=== PATIENT | male | born 1940 | race Caucasian/White ===

== ENCOUNTER 2017-09-29 08:15 | Day surgery (SDC) | payer MEDICARE, BC ==
[2017-09-29] MEDS ORDERED: fentaNYL 100 MCG/2 ML SDV ONE ×2 (08:47→11:15)
[2017-09-29] MEDS ORDERED: Propofol 200 MG/20 ML SDV ONE ×2 (08:47→11:15)
[2017-09-29] MEDS ORDERED: Midazolam 1 MG/ML 2 ML SDV ONE ×2 (08:47→11:15)
[2017-09-29] MEDS ORDERED: Lactated Ringers 1,000 ML IV SCH (09:30)
[2017-09-29] MEDS ORDERED: Sodium Chloride 0.9% 10 ML Syringe FLUSH PRN (09:30)
--- NOTE | 2017-09-29 11:05 | PCM.HPR ---
H & P Addendum review - H & P Addendum Review Date of Original H & P: 09/27/17 Date Reviewed: 09/29/17 Time Reviewed: 11:05 Patient was Examined: No Changes
--- NOTE | 2017-09-29 11:48 | PCM.OPNOTE ---
- General Post-Op/Procedure Note Date of Surgery/Procedure: 09/29/17 Operative Procedure(s): Colonoscopy with polypectomy Findings: polyps / sig tics Pre Op Diagnosis: Change in bowel habits Post-Op Diagnosis: Same Anesthesia Technique: MAC Primary Surgeon: David Floyd Anesthesia Provider: Shanae Jaffe Complications: None Condition: Good
[2017-09-29 12:46] VITALS: BP 112/57
--- NOTE | 2017-09-29 12:50 | OR ---
Date of Procedure: 09/29/2017 PREOPERATIVE DIAGNOSIS: Change of bowel habits. POSTOPERATIVE DIAGNOSES: 1. Colon polyps. 2. Sigmoid diverticulosis. PROCEDURE: Colonoscopy. ANESTHESIA: IV sedation. DESCRIPTION OF PROCEDURE: The patient was brought to the procedure room, where he was placed on his left side and IV sedation administered. Digital rectal exam was performed which was normal. Colonoscope was inserted and advanced to the level of the cecum without difficulty. Cecal position was confirmed by identifying the appendiceal lumen and ileocecal valve. Prep was good and surfaces were well visualized. Upon withdrawing the scope, the ascending and transverse colon were normal. In the descending colon was a 12-mm pedunculated polyp, removed with a cautery snare and retrieved into the polyp trap. In the sigmoid colon at 40 cm, was another 10-mm pedunculated polyp removed with cautery snare and retrieved in the polyp trap. There were a few sigmoid diverticula present. Rectum was normal and retroflexion was normal. Air was removed and the scope withdrawn. The patient tolerated the procedure well and returned to recovery in stable condition. The patient will follow up with Chris Bob for review of pathology report. Polyps are obviously adenomatous, and recommend a repeat colonoscopy again in 3 years. HIRAM MORELAND MD /[id number]
== END 2017-09-29 12:43 | disposition home or self-care (01) ==
LOC: LL.SDS 08:15
PROVIDERS: ATTEND Surgery
DX: R19.4 Change in bowel habit (principal); D12.4 Benign neoplasm of descending colon; D12.5 Benign neoplasm of sigmoid colon; K57.30 Diverticulosis of large intestine without perforation or abscess without bleeding; J44.9 Chronic obstructive pulmonary disease, unspecified; F32.9 Major depressive disorder, single episode, unspecified; J30.9 Allergic rhinitis, unspecified; N40.1 Benign prostatic hyperplasia with lower urinary tract symptoms; N13.8 Other obstructive and reflux uropathy; Z79.51 Long term (current) use of inhaled steroids; Z79.52 Long term (current) use of systemic steroids; Z79.899 Other long term (current) drug therapy; Z88.2 Allergy status to sulfonamides; Z88.8 Allergy status to other drugs, medicaments and biological substances; Z98.890 Other specified postprocedural states; Z87.891 Personal history of nicotine dependence
CPT/HCPCS: 00812; J2250; J2704; J3010; J7120

== ENCOUNTER 2018-07-27 11:33 | Inpatient (IN) | payer MEDICARE, BC ==
[2018-07-27 11:36] LABS: CHLORIDE,CL 100 mmol/L (98-107); SODIUM,NA 140 mmol/L (136-145)
--- NOTE | 2018-07-27 11:50 | PCM.HP ---
H&P History of Present Illness - General Date of Service: 07/27/18 Admit Problem/Dx: COPD and pneumonia Source of Information: Patient History Limitations: Reports: Respiratory Distress - History of Present Illness Initial Comments - Free Text/Narative: patient is a 78-year-old male who seen with chief complaint of progressive respiratory distress patient has a long history of COPD and smoking he quit smoking 16 years ago were seen complications on long-acting smoking. Patient states that for the last 4 months he has not been feeling well a bout 6 weeks ago was seen and treated with Levaquin 750 by mouth for 9 days patient did not improve much and 10 days and was restarted on Levaquin has been on it for 19 days now patient IS RUNNING levels between a levels at room air between 80 and 84 with minimal exertion and has been wearing 3 L along 2 constantly to maintain saturations greater than 90%. Initial evaluation revealed chest x-ray to have a right mental lobe with long-term changes of COPD at this time we will go ahead and admit patient for aggressive pulmonary treatments. infiltrate Onset of Symptoms: Reports: Gradual Duration of Symptoms: Reports: Week(s):, Chronic, Getting Worse Location: Reports: Chest Quality: Reports: Ache Severity: Moderate Improves with: Reports: Medication, Rest Worsens with: Reports: Breathing, Movement Context: Reports: Other (pneumonia) Associated Symptoms: Reports: No Other Symptoms, cough w sputum, Shortness of Breath, Weakness - Related Data Allergies/Adverse Reactions: Allergies Allergy/AdvReac Type Severity Reaction Status Date / Time dexamethasone Allergy Nausea and Verified 07/27/18 11:50 Vomiting Sulfa (Sulfonamide AdvReac urinary Verified 07/27/18 11:50 Antibiotics) retention Home Medications: Home Meds Tiotropium [Spiriva HandiHaler] 1 ampule IH DAILY 06/14/14 [History] Finasteride [Proscar] 5 mg PO DAILY 04/09/16 [History] Fluticasone/Salmeterol [Advair 500-50] 1 puff INH BID 09/29/17 [History] Sertraline [Zoloft] 50 mg PO DAILY 09/29/17 [History] Tamsulosin [Flomax] 2 cap PO DAILY 09/29/17 [History] guaiFENesin [Mucinex] 600 mg PO BID 09/29/17 [History] Levofloxacin 1 tab PO DAILY 07/27/18 [History] Past Medical History HEENT History: Reports: Allergic Rhinitis, Cataract, Hard of Hearing, Impaired Vision, Other (See Below) Other HEENT History: Progressive lenses/glasses, bilateral hearing aides Cardiovascular History: Reports: Aneurysm, Arrhythmia, CAD, High Cholesterol, Other (See Below) Other Cardiovascular History: 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, inferior wall cardiac ischemia by Cardiolite stress test on 11/07/03, hyperlipidemia with secondary fatty liver by ultrasound Respiratory History: Reports: Bronchitis, Recurrent, COPD, Pneumonia, Recurrent , Pneumothorax, Pulmonary Fibrosis, Other (See Below) Other Respiratory History: Severe end-stage COPD with nocturnal O2 therapy and additional pulmonary fibrosis by chest x-ray, right sided spontaneous pneumothorax on 07/26/14, left sided pulmonary nodule Gastrointestinal History: Reports: None, Other (See Below) Other Gastrointestinal History: Fatty liver secondary to hyperlipidemia, multiple benign hepatic cysts Genitourinary History: Reports: BPH, Retention, Urinary, UTI, Recurrent, Other ( See Below) Other Genitourinary History: Left renal cyst Musculoskeletal History: Reports: Back Pain, Chronic, Neck Pain, Chronic, Osteoarthritis, Osteoporosis Neurological History: Reports: None Other Neuro History: Dunlap's Neuroma Psychiatric History: Reports: Anxiety, Depression Endocrine/Metabolic History: Reports: Osteoporosis Hematologic History: Reports: None Immunologic History: Reports: None Oncologic (Cancer) History: Reports: Basal Cell Carcinoma Dermatologic History: Reports: None - Infectious Disease History Infectious Disease History: Reports: Chicken Pox, Measles, Mumps - Past Surgical History GI Surgical History: Reports: Colonoscopy, Other (See Below) - Past Imaging History Past Imaging History: Reports: CAT Scan, HIDA Scan, PFT, Sleep Study, Stress Testing, Ultrasound Social & Family History - Caffeine Use Caffeine Use: Reports: Coffee Caffeine Use Comment: 6 cups of coffee per day - Living Situation & Occupation Living situation: Reports: , with Family Occupation: Employed H&P Review of Systems - Review of Systems: Review Of Systems: See Below HEENT: Reports: No Symptoms Pulmonary: Reports: Shortness of Breath, Wheezing (at night worse), Cough, Sputum Cardiovascular: Reports: No Symptoms Gastrointestinal: Reports: No Symptoms Genitourinary: Reports: No Symptoms Musculoskeletal: Reports: No Symptoms Skin: Reports: Pruritis, Rash Psychiatric: Reports: No Symptoms Neurological: Reports: Confusion (conveyed to hypoxia) Hematologic/Lymphatic: Reports: No Symptoms Immunologic: Reports: No Symptoms Exam - Exam Exam: See Below - Exam Quality Assessment: Supplemental Oxygen General: Alert, Oriented, Cooperative, Moderate Distress HEENT: PERRLA, Hearing Intact, Mucosa Moist & [place], Nares Patent, Normal Nasal Septum, Posterior Pharynx Clear, Conjunctiva Clear, EOMI, EACs Clear, TMs Clear Neck: Supple, Trachea Midline, 2 Lungs: Decreased Breath Sounds, Rales Cardiovascular: Regular Rate, Regular Rhythm GI/Abdominal Exam: Normal Bowel Sounds, Soft, Non-Tender, No Organomegaly, No Distention, No Abnormal Bruit, No Mass, Pelvis Stable (Male) Exam: No Hernia Rectal (Males) Exam: Deferred, Other (colonoscopy done 9 months ago negative for any polyps bleeding) Back Exam: Decreased Range of Motion Extremities: Normal Inspection, Normal Range of Motion, Non-Tender, No Pedal Edema, Normal Capillary Refill Skin: Warm, Dry, Intact Neurological: Cranial Nerves Intact, Reflexes Equal Bilateral Neuro Extensive - Mental Status: Alert, Oriented x3, Normal Mood/Affect, Normal Cognition Psychiatric: Alert, Normal Affect, Normal Mood - Patient Data Lab Results Last 24 hrs: Laboratory Results - last 24 hr 07/27/18 07/27/18 Range/Units 11:00 11:00 WBC 11.4 H (4.0-10.2) K/uL RBC 4.65 (4.33-5.41) M/uL Hgb 13.6 (13.1-16.8) g/dL Hct 41.2 (39.0-49.0) % MCV 88.6 (84.0-98.0) fL MCH 29.2 (28.2-33.3) pg MCHC 33.0 (31.7-36.0) g/dL RDW 14.1 (11.2-14.1) % Plt Count 214 (150-350) K/uL Neut % (Auto) 80.7 H (45.0-80.0) % Lymph % (Auto) 6.5 L (10.0-50.0) % [place] % (Auto) 12.0 (2.0-14.0) % Eos % (Auto) 0.6 (0.0-5.0) % Baso % (Auto) 0.2 (0.0-2.0) % Neut # (Auto) 9.19 H (1.40-7.00) K/uL Lymph # (Auto) 0.74 (0.50-3.50) K/uL [place] # (Auto) 1.36 H (0.00-1.00) K/uL Eos # (Auto) 0.07 (0.00-0.50) K/uL Baso # (Auto) 0.02 (0.00-0.20) K/uL Sodium 140 (136-145) mmol/L Potassium 4.1 (3.5-5.1) mmol/L Chloride 100 (98-107) mmol/L Carbon Dioxide 32.4 H (21.0-32.0) mmol/L BUN 14 (7-18) mg/dL Creatinine 0.66 (0.51-1.17) mg/dL Est Cr Clr Drug Dosing TNP Estimated GFR (MDRD) > 60 mL/min Glucose 93 (74-106) mg/dL Calcium 8.9 (8.5-10.1) mg/dL Total Bilirubin 0.7 (0.2-1.0) mg/dL AST 18 (15-37) U/L ALT 20 (12-78) U/L Alkaline Phosphatase 66 (46-116) IU/L NT-Pro-B Natriuret Pep 286 H (0-125) pg/mL Total Protein 7.0 (6.4-8.2) g/dL Albumin 3.0 L (3.4-5.0) g/dL Result Diagrams: 07/27/18 11:00 07/27/18 11:00 - Problem List (1) COLD, Chronic obstructive lung disease SNOMED Code(s): 83841393 ICD Code: J44.9 - CHRONIC OBSTRUCTIVE PULMONARY DISEASE, UNSPECIFIED Status : Acute Priority: High Current Visit: No Onset Date: 07/26/14 Problem Details: patient's FEV1 has declined mildly in the Last couple years at this time his expiratory phase is prolonged we will go ahead and admit him for treatment (2) Pneumonia SNOMED Code(s): 596921916 ICD Code: J18.9 - PNEUMONIA, UNSPECIFIED ORGANISM Status: Acute Priority : High Current Visit: No Problem Details: right middle lobe patient's be admitted for IV antibiotics and aggressive pulmonary treatments. 11-29-14. Patient's breathing has improved. Patient will be DC'd today Problem List Initiated/Reviewed/Updated: Yes Orders Last 24hrs: Active Orders 24 hr Category Date Time Status Chest 2V [CR] Routine Exams 07/27/18 Taken Assessment/Plan Comment:: Mark to admit him and treat him with medications hopefully release him in the next couple days
[2018-07-27] MEDS ORDERED: Azithromycin 500 MG in Sodium Chloride 0.9% 250 ML IV SCH (12:45)
[2018-07-27] MEDS ORDERED: Albuterol/Ipratropium 3.0-0.5 MG/3 ML Neb Soln NEB PRN (13:00)
[2018-07-27 13:03] LABS: BASE EXCESS ARTERIAL 5 mmol/L (-2-3); BICARBONATE,ARTERIAL 29.1 mmol/L (22-26); O2 DELIVERY DEVICE NASAL CANNULA; O2 SATURATION ARTERIAL 98 % (95-98); PCO2 ARTERIAL 44 mmHG (35-45); PO2 ARTERIAL 96 mmHG (80-105)
[2018-07-27] MEDS: methylPREDNISolone Sodium Succinate 125 MG/2 ML SDV IVPUSH SCH ×2 (13:50→19:55)
[2018-07-27] MEDS: Sodium Chloride 0.9% 10 ML Syringe FLUSH PRN ×4 (13:51→19:55)
[2018-07-27] MEDS: Azithromycin 500 MG in Sodium Chloride 0.9% 250 ML IV SCH (13:51)
[2018-07-27] MEDS: Piperacillin/Tazobactam 3.375 GM in Sodium Chloride 0.9% 100 ML IV SCH ×2 (14:54→19:54)
[2018-07-27] MEDS: Levofloxacin/Dextrose 5%-Water 750 MG in Premix Bag 1 BAG IV SCH (15:30)
[2018-07-27] MEDS: Albuterol/Ipratropium 3.0-0.5 MG/3 ML Neb Soln NEB SCH ×2 (15:33→19:56)
[2018-07-27] MEDS: Formoterol/Mometasone 200-5 MCG 8.8 GM Inhaler IH SCH (17:46)
[2018-07-27] MEDS: guaiFENesin 600 MG Tab.ER PO SCH (17:47)
[2018-07-27] MEDS: Tamsulosin 0.4 MG Cap.ER PO SCH (17:47)
[2018-07-28] MEDS: methylPREDNISolone Sodium Succinate 125 MG/2 ML SDV IVPUSH SCH ×3 (02:01→12:07)
[2018-07-28] MEDS: Sodium Chloride 0.9% 10 ML Syringe FLUSH PRN ×7 (02:01→19:23)
[2018-07-28] MEDS: Piperacillin/Tazobactam 3.375 GM in Sodium Chloride 0.9% 100 ML IV SCH ×4 (02:01→19:23)
[2018-07-28 07:38] LABS: CHLORIDE,CL 99 mmol/L (98-107); SODIUM,NA 138 mmol/L (136-145)
[2018-07-28] MEDS: Sertraline 50 MG Tab PO SCH (07:49)
[2018-07-28] MEDS: Finasteride 5 MG Tab PO SCH (07:50)
[2018-07-28] MEDS: guaiFENesin 600 MG Tab.ER PO SCH ×2 (07:50→17:23)
[2018-07-28] MEDS: Tamsulosin 0.4 MG Cap.ER PO SCH ×2 (07:50→17:23)
[2018-07-28] MEDS: Albuterol/Ipratropium 3.0-0.5 MG/3 ML Neb Soln NEB SCH ×4 (07:50→19:23)
[2018-07-28] MEDS: Formoterol/Mometasone 200-5 MCG 8.8 GM Inhaler IH SCH ×2 (07:51→17:23)
[2018-07-28] MEDS: Enoxaparin 30 MG/0.3 ML Syringe SUBCUT SCH (07:51)
[2018-07-28] MEDS: Tiotropium Inhaler 18 MCG Inhalation Powder Cap Kit of 5 INH SCH (07:53)
[2018-07-28] MEDS ORDERED: Tamsulosin 0.4 MG Cap.ER PO SCH (08:00)
[2018-07-28] MEDS ORDERED: Sertraline 50 MG Tab PO SCH (08:00)
[2018-07-28] MEDS: Azithromycin 500 MG in Sodium Chloride 0.9% 250 ML IV SCH (12:07)
[2018-07-28] MEDS: Levofloxacin/Dextrose 5%-Water 750 MG in Premix Bag 1 BAG IV SCH (15:27)
[2018-07-28] MEDS ORDERED: methylPREDNISolone Sod Succ 60 MG in Sodium Chloride 0.9% 100 ML IV ONE (17:18)
--- NOTE | 2018-07-28 17:26 | PCM.PN ---
- General Info Date of Service: 07/28/18 Subjective Update: Patient seen doing better today less shortness of breath breathing easier at this time we will leave his prednisone down continue him on antibiotics repeat chest x-ray and labs in the morning - Review of Systems General: Reports: No Symptoms HEENT: Reports: No Symptoms Pulmonary: Reports: Shortness of Breath Cardiovascular: Reports: No Symptoms Gastrointestinal: Reports: No Symptoms Genitourinary: Reports: No Symptoms Musculoskeletal: Reports: No Symptoms Skin: Reports: No Symptoms Neurological: Reports: No Symptoms Psychiatric: Reports: No Symptoms - Patient Data Vitals - Most Recent: Last Vital Signs Temp 97.9 F 07/28/18 16:00 Pulse 83 07/28/18 16:00 Resp 22 H 07/28/18 16:00 BP 120/63 07/28/18 16:00 Pulse Ox 95 07/28/18 16:00 Weight - Most Recent: 126 lb 12.817 oz I&O - Last 24 Hours: Intake & Output 07/28/18 07/28/18 07/28/18 06:59 14:59 22:59 Intake Total 400 720 Output Total 100 150 Balance 300 570 Lab Results Last 24 Hours: Laboratory Results - last 24 hr 07/28/18 07/28/18 Range/Units 07:05 07:05 WBC 6.1 (4.0-10.2) K/uL RBC 4.21 L (4.33-5.41) M/uL Hgb 12.2 L (13.1-16.8) g/dL Hct 36.7 L (39.0-49.0) % MCV 87.2 (84.0-98.0) fL MCH 29.0 (28.2-33.3) pg MCHC 33.2 (31.7-36.0) g/dL RDW 13.7 (11.2-14.1) % Plt Count 219 (150-350) K/uL Neut % (Auto) 93.2 H (45.0-80.0) % Lymph % (Auto) 5.1 L (10.0-50.0) % [place] % (Auto) 1.5 L (2.0-14.0) % Eos % (Auto) 0.0 (0.0-5.0) % Baso % (Auto) 0.2 (0.0-2.0) % Neut # (Auto) 5.67 (1.40-7.00) K/uL Lymph # (Auto) 0.31 L (0.50-3.50) K/uL [place] # (Auto) 0.09 (0.00-1.00) K/uL Eos # (Auto) 0.00 (0.00-0.50) K/uL Baso # (Auto) 0.01 (0.00-0.20) K/uL Sodium 138 (136-145) mmol/L Potassium 4.2 (3.5-5.1) mmol/L Chloride 99 (98-107) mmol/L Carbon Dioxide 28.2 (21.0-32.0) mmol/L BUN 14 (7-18) mg/dL Creatinine 0.62 (0.51-1.17) mg/dL Est Cr Clr Drug Dosing 82.46 mL/min Estimated GFR (MDRD) > 60 mL/min Glucose 138 H (74-106) mg/dL Calcium 8.6 (8.5-10.1) mg/dL Total Bilirubin 0.5 (0.2-1.0) mg/dL AST 14 L (15-37) U/L ALT 21 (12-78) U/L Alkaline Phosphatase 58 (46-116) IU/L Total Protein 6.4 (6.4-8.2) g/dL Albumin 2.7 L (3.4-5.0) g/dL [place] Results Last 24 Hours: Microbiology 07/27/18 13:10 Aerobic Blood Culture - Preliminary Blood - Venous - Lab Draw NO GROWTH AFTER 1 DAY Anaerobic Blood Culture - Preliminary NO GROWTH AFTER 1 DAY 07/27/18 12:55 Aerobic Blood Culture - Preliminary Blood - Venous NO GROWTH AFTER 1 DAY Anaerobic Blood Culture - Preliminary NO GROWTH AFTER 1 DAY Med Orders - Current: Current Medications Albuterol/Ipratropium (Duoneb 3.0-0.5 Mg/3 Ml) 3 ml NEB Q4H PRN PRN Reason: Dyspnea Albuterol/Ipratropium (Duoneb 3.0-0.5 Mg/3 Ml) 3 ml NEB QID [facility] Last Admin: 07/28/18 15:27 Dose: 3 ml Enoxaparin Sodium (Lovenox) 30 mg SUBCUT DAILY [facility] Last Admin: 07/28/18 07:51 Dose: 30 mg Finasteride (Proscar) 5 mg PO DAILY [facility] Last Admin: 07/28/18 07:50 Dose: 5 mg Guaifenesin (Mucinex) 600 mg PO BID [facility] Last Admin: 07/28/18 07:50 Dose: 600 mg Levofloxacin/Dextrose 750 mg/ (Premix) 150 mls @ 100 mls/hr IV Q24H [facility] Last Admin: 07/28/18 15:27 Dose: 100 mls/hr Piperacillin Sod/Tazobactam (Sod 3.375 gm/ Sodium Chloride) 100 mls @ 200 mls/ hr IV Q6H [facility] Last Admin: 07/28/18 13:19 Dose: 200 mls/hr Azithromycin 500 mg/ Sodium (Chloride) 250 mls @ 250 mls/hr IV Q24H [facility] Last Admin: 07/28/18 12:07 Dose: 250 mls/hr Methylprednisolone Sodium Succinate 60 mg/ Sodium Chloride 100.48 mls @ 100 mls /hr IV QID ONE Stop: 07/28/18 18:18 Mometasone Furoate/Formoterol Fumar (Dulera 200-5 Mcg) 2 puff IH BID [facility] Last Admin: 07/28/18 07:51 Dose: 2 puff Sertraline HCl (Zoloft) 75 mg PO DAILY [facility] Last Admin: 07/28/18 07:49 Dose: 75 mg Sodium Chloride (Saline Flush) 10 ml FLUSH ASDIRECTED PRN PRN Reason: Keep Vein Open Last Admin: 07/28/18 15:30 Dose: 10 ml Tamsulosin HCl (Flomax) 0.4 mg PO BID [facility] Last Admin: 07/28/18 07:50 Dose: 0.4 mg Tiotropium [place] (Spiriva Handihaler) 18 mcg INH DAILY [facility] Last Admin: 07/28/18 07:53 Dose: 18 mcg Discontinued Medications Azithromycin 500 mg/ Sodium (Chloride) 250 mls @ 250 mls/hr IV Q24H [facility] Methylprednisolone Sodium Succinate (Solu-Medrol) 125 mg IVPUSH Q6H [facility] Last Admin: 07/28/18 12:07 Dose: 125 mg Sertraline HCl (Zoloft) 50 mg PO DAILY [facility] Tamsulosin HCl (Flomax) 0.8 mg PO DAILY [facility] - Exam Quality Assessment: Supplemental Oxygen General: Alert, Oriented, Cooperative, Moderate Distress HEENT: Pupils Equal, Pupils Reactive, EOMI, Mucous Membr. Moist/[place] Neck: Supple Lungs: Decreased Breath Sounds, Wheezing (Improving) Cardiovascular: Regular Rate, Regular Rhythm GI/Abdominal Exam: Normal Bowel Sounds, Soft, Non-Tender, No Organomegaly, No Distention, No Abnormal Bruit, No Mass, Pelvis Stable (Male) Exam: Deferred Back Exam: Normal Inspection, Full Range of Motion Extremities: Normal Inspection, Normal Range of Motion, Non-Tender, No Pedal Edema, Normal Capillary Refill - Problem List & Annotations (1) COLD, Chronic obstructive lung disease SNOMED Code(s): 39196822 Code(s): J44.9 - CHRONIC OBSTRUCTIVE PULMONARY DISEASE, UNSPECIFIED Status : Acute Priority: High Current Visit: Yes Onset Date: 07/26/14 Annotation/Comment:: Patient feeling better less short of breath will continue medical (2) Pneumonia SNOMED Code(s): 574345346 Code(s): J18.9 - PNEUMONIA, UNSPECIFIED ORGANISM Status: Acute Priority: High Current Visit: Yes Annotation/Comment:: Patient breathing continues improving he feels much stronger today and breathing easier - Problem List Review Problem List Initiated/Reviewed/Updated: Yes - My Orders Last 24 Hours: My Active Orders 07/27/18 18:00 Mometasone/Formoterol [Dulera 200-5 MCG] 2 puff IH BID Tamsulosin [Flomax] 0.4 mg PO BID guaiFENesin [Mucinex] 600 mg PO BID 07/27/18 Dinner Heart Healthy Diet [DIET] 07/28/18 08:00 Enoxaparin [Lovenox] 30 mg SUBCUT DAILY Finasteride [Proscar] 5 mg PO DAILY Sertraline [Zoloft] 75 mg PO DAILY Tiotropium [Spiriva HandiHaler] 18 mcg INH DAILY 07/28/18 10:09 Consult to Physical Therapy [PT Evaluation and Treatment] [CONS] Routine 07/28/18 17:17 Chest 2V [CR] Stat 07/28/18 17:18 methylPREDNISolone Sod Succ [Solu-MEDROL] 60 mg Sodium Chloride 0.9% [Normal Saline] 100 ml IV QID 07/28/18 17:30 CBC WITH AUTO DIFF [HEME] AM 07/29/18 05:11 CBC WITH AUTO DIFF [HEME] Q24H 07/30/18 05:11 CBC WITH AUTO DIFF [HEME] Q24H 07/31/18 05:11 CBC WITH AUTO DIFF [HEME] Q24H - Plan Plan:: Mark to admit him and treat him with medications hopefully release him in the next couple days
[2018-07-28] MEDS: methylPREDNISolone Sodium Succinate 40 MG/1 ML SDV IVPUSH SCH (18:11)
[2018-07-29] MEDS: Sodium Chloride 0.9% 10 ML Syringe FLUSH PRN ×6 (01:46→19:43)
[2018-07-29] MEDS: Piperacillin/Tazobactam 3.375 GM in Sodium Chloride 0.9% 100 ML IV SCH ×4 (01:46→19:43)
[2018-07-29] MEDS: methylPREDNISolone Sodium Succinate 40 MG/1 ML SDV IVPUSH SCH ×4 (01:46→17:39)
[2018-07-29] MEDS: Sertraline 50 MG Tab PO SCH (08:40)
[2018-07-29] MEDS: Formoterol/Mometasone 200-5 MCG 8.8 GM Inhaler IH SCH ×2 (08:40→17:46)
[2018-07-29] MEDS: Finasteride 5 MG Tab PO SCH (08:41)
[2018-07-29] MEDS: guaiFENesin 600 MG Tab.ER PO SCH ×2 (08:41→17:39)
[2018-07-29] MEDS: Albuterol/Ipratropium 3.0-0.5 MG/3 ML Neb Soln NEB SCH ×4 (08:41→19:43)
[2018-07-29] MEDS: Tamsulosin 0.4 MG Cap.ER PO SCH ×2 (08:41→17:39)
[2018-07-29] MEDS: Tiotropium Inhaler 18 MCG Inhalation Powder Cap Kit of 5 INH SCH (08:42)
[2018-07-29] MEDS: Enoxaparin 30 MG/0.3 ML Syringe SUBCUT SCH (08:43)
[2018-07-29] MEDS: Azithromycin 500 MG in Sodium Chloride 0.9% 250 ML IV SCH (12:29)
[2018-07-29] MEDS: Levofloxacin/Dextrose 5%-Water 750 MG in Premix Bag 1 BAG IV SCH (15:37)
[2018-07-29] MEDS: Lactobacillus Rhamnosus GG (Probiotic) Cap PO SCH (17:39)
--- NOTE | 2018-07-29 21:44 | PCM.PN ---
- General Info Date of Service: 07/29/18 Admission Dx/Problem (Free Text): COPD and pneumonia Subjective Update: Patient doing better less shortness of breath was able to ambulate 100 m but still very anxious Functional Status: Reports: Tolerating Diet, Ambulating - Review of Systems General: Reports: Weakness HEENT: Reports: Glasses Pulmonary: Reports: Shortness of Breath Cardiovascular: Reports: No Symptoms Gastrointestinal: Reports: No Symptoms Genitourinary: Reports: No Symptoms Musculoskeletal: Reports: No Symptoms Skin: Reports: No Symptoms Neurological: Reports: No Symptoms Psychiatric: Reports: Anxiety, Agitation (Secondary to shortness of breath) - Patient Data Vitals - Most Recent: Last Vital Signs Temp 97.3 F 07/29/18 16:04 Pulse 86 07/29/18 16:04 Resp 18 07/29/18 16:04 BP 130/63 07/29/18 16:04 Pulse Ox 96 07/29/18 16:04 Weight - Most Recent: 126 lb 12.817 oz I&O - Last 24 Hours: Intake & Output 07/29/18 07/29/18 07/29/18 06:59 14:59 22:59 Intake Total 113 542 3197 Output Total 300 200 Balance -349 401 2425 Imaging Impressions - Last 24 Hours: Not much in the last 24 hours Lab Results Last 24 Hours: Laboratory Results - last 24 hr 07/29/18 Range/Units 07:12 WBC 14.7 H (4.0-10.2) K/uL RBC 4.46 (4.33-5.41) M/uL Hgb 12.9 L (13.1-16.8) g/dL Hct 39.0 (39.0-49.0) % MCV 87.4 (84.0-98.0) fL MCH 28.9 (28.2-33.3) pg MCHC 33.1 (31.7-36.0) g/dL RDW 14.0 (11.2-14.1) % Plt Count 269 (150-350) K/uL Neut % (Auto) 93.4 H (45.0-80.0) % Lymph % (Auto) 2.7 L (10.0-50.0) % [place] % (Auto) 3.8 (2.0-14.0) % Eos % (Auto) 0.0 (0.0-5.0) % Baso % (Auto) 0.1 (0.0-2.0) % Neut # (Auto) 13.70 H (1.40-7.00) K/uL Lymph # (Auto) 0.40 L (0.50-3.50) K/uL [place] # (Auto) 0.56 (0.00-1.00) K/uL Eos # (Auto) 0.00 (0.00-0.50) K/uL Baso # (Auto) 0.01 (0.00-0.20) K/uL [place]io Results Last 24 Hours: Microbiology 07/27/18 13:10 Aerobic Blood Culture - Preliminary Blood - Venous - Lab Draw NO GROWTH AFTER 2 DAYS Anaerobic Blood Culture - Preliminary NO GROWTH AFTER 2 DAYS 07/27/18 12:55 Aerobic Blood Culture - Preliminary Blood - Venous NO GROWTH AFTER 2 DAYS Anaerobic Blood Culture - Preliminary NO GROWTH AFTER 2 DAYS Med Orders - Current: Current Medications Albuterol/Ipratropium (Duoneb 3.0-0.5 Mg/3 Ml) 3 ml NEB Q4H PRN PRN Reason: Dyspnea Albuterol/Ipratropium (Duoneb 3.0-0.5 Mg/3 Ml) 3 ml NEB QID [facility] Last Admin: 07/29/18 19:43 Dose: 3 ml Enoxaparin Sodium (Lovenox) 30 mg SUBCUT DAILY [facility] Last Admin: 07/29/18 08:43 Dose: 30 mg Finasteride (Proscar) 5 mg PO DAILY [facility] Last Admin: 07/29/18 08:41 Dose: 5 mg Guaifenesin (Mucinex) 600 mg PO BID [facility] Last Admin: 07/29/18 17:39 Dose: 600 mg Levofloxacin/Dextrose 750 mg/ (Premix) 150 mls @ 100 mls/hr IV Q24H [facility] Last Admin: 07/29/18 15:37 Dose: 100 mls/hr Piperacillin Sod/Tazobactam (Sod 3.375 gm/ Sodium Chloride) 100 mls @ 200 mls/ hr IV Q6H [facility] Last Admin: 07/29/18 19:43 Dose: 200 mls/hr Azithromycin 500 mg/ Sodium (Chloride) 250 mls @ 250 mls/hr IV Q24H [facility] Last Admin: 07/29/18 12:29 Dose: 250 mls/hr Lactobacillus Rhamnosus (Culturelle) 1 cap PO BID [facility] Last Admin: 07/29/18 17:39 Dose: 1 cap Methylprednisolone Sodium Succinate (Solu-Medrol) 60 mg IVPUSH Q6H [facility] Last Admin: 07/29/18 17:39 Dose: 60 mg Mometasone Furoate/Formoterol Fumar (Dulera 200-5 Mcg) 2 puff IH BID [facility] Last Admin: 07/29/18 17:46 Dose: 2 puff Sertraline HCl (Zoloft) 75 mg PO DAILY [facility] Last Admin: 07/29/18 08:40 Dose: 75 mg Sodium Chloride (Saline Flush) 10 ml FLUSH ASDIRECTED PRN PRN Reason: Keep Vein Open Last Admin: 07/29/18 19:43 Dose: 10 ml Tamsulosin HCl (Flomax) 0.4 mg PO BID [facility] Last Admin: 07/29/18 17:39 Dose: 0.4 mg Tiotropium [place] (Spiriva Handihaler) 18 mcg INH DAILY [facility] Last Admin: 07/29/18 08:42 Dose: 1 cap Discontinued Medications Azithromycin 500 mg/ Sodium (Chloride) 250 mls @ 250 mls/hr IV Q24H [facility] Methylprednisolone Sodium Succinate 60 mg/ Sodium Chloride 100.48 mls @ 100 mls /hr IV QID ONE Stop: 07/28/18 18:18 Last Admin: 07/28/18 18:14 Dose: Not Given Methylprednisolone Sodium Succinate (Solu-Medrol) 125 mg IVPUSH Q6H [facility] Last Admin: 07/28/18 12:07 Dose: 125 mg Sertraline HCl (Zoloft) 50 mg PO DAILY [facility] Tamsulosin HCl (Flomax) 0.8 mg PO DAILY [facility] - Exam Quality Assessment: Supplemental Oxygen, DVT Prophylaxis General: Alert, Oriented, Cooperative HEENT: Pupils Equal, Pupils Reactive, EOMI, Mucous Membr. Moist/[employer] Neck: Supple Cardiovascular: Regular Rate, Regular Rhythm GI/Abdominal Exam: Normal Bowel Sounds, Soft, Non-Tender, No Organomegaly, No Distention, No Abnormal Bruit, No Mass, Pelvis Stable (Male) Exam: Deferred Back Exam: Normal Inspection, Full Range of Motion Extremities: Normal Inspection, Normal Range of Motion, Non-Tender, No Pedal Edema, Normal Capillary Refill Skin: Warm, Dry, Intact Wound/Incisions: Healing Well Neurological: No New Focal Deficit Psy/Mental Status: Anxious, Agitated - Problem List & Annotations (1) COLD, Chronic obstructive lung disease SNOMED Code(s): 36761075 Code(s): J44.9 - CHRONIC OBSTRUCTIVE PULMONARY DISEASE, UNSPECIFIED Status : Acute Priority: High Current Visit: Yes Onset Date: 07/26/14 Annotation/Comment:: Patient feeling better breathing easier still short of breath when ambulating did take a shower was anxious secondary to hypoxia. Needs oxygen all the time (2) Pneumonia SNOMED Code(s): 348300091 Code(s): J18.9 - PNEUMONIA, UNSPECIFIED ORGANISM Status: Acute Priority: High Current Visit: Yes Annotation/Comment:: We decreased his prednisone which helped him with anxiety and with shakiness I think will start him on BuSpar - Problem List Review Problem List Initiated/Reviewed/Updated: Yes - My Orders Last 24 Hours: My Active Orders 07/28/18 21:24 Vital Signs [RC] BID 07/29/18 05:11 Chest 2V [CR] AM 07/29/18 18:00 Lactobacillus Rhamnosus GG [Culturelle] 1 cap PO BID 07/30/18 05:11 CBC WITH AUTO DIFF [HEME] Q24H 07/31/18 05:11 CBC WITH AUTO DIFF [HEME] Q24H - Plan Plan:: Taytus to admit him and treat him with medications hopefully release him in the next couple days
[2018-07-30] MEDS: Piperacillin/Tazobactam 3.375 GM in Sodium Chloride 0.9% 100 ML IV SCH ×4 (03:06→21:16)
[2018-07-30] MEDS: Sodium Chloride 0.9% 10 ML Syringe FLUSH PRN ×3 (03:07→16:06)
[2018-07-30] MEDS: methylPREDNISolone Sodium Succinate 40 MG/1 ML SDV IVPUSH SCH ×2 (03:07→07:50)
[2018-07-30 07:38] LABS: CHLORIDE,CL 102 mmol/L (98-107); SODIUM,NA 139 mmol/L (136-145)
[2018-07-30] MEDS: Lactobacillus Rhamnosus GG (Probiotic) Cap PO SCH ×2 (07:53→17:13)
[2018-07-30] MEDS: Formoterol/Mometasone 200-5 MCG 8.8 GM Inhaler IH SCH ×2 (07:54→17:13)
[2018-07-30] MEDS: Tiotropium Inhaler 18 MCG Inhalation Powder Cap Kit of 5 INH SCH (07:54)
[2018-07-30] MEDS: Finasteride 5 MG Tab PO SCH (07:55)
[2018-07-30] MEDS: guaiFENesin 600 MG Tab.ER PO SCH ×2 (07:55→17:13)
[2018-07-30] MEDS: Albuterol/Ipratropium 3.0-0.5 MG/3 ML Neb Soln NEB SCH ×4 (07:55→21:15)
[2018-07-30] MEDS: Sertraline 50 MG Tab PO SCH (07:56)
[2018-07-30] MEDS: Tamsulosin 0.4 MG Cap.ER PO SCH ×2 (07:56→17:13)
[2018-07-30] MEDS: Enoxaparin 30 MG/0.3 ML Syringe SUBCUT SCH (07:56)
[2018-07-30] MEDS: busPIRone 15 MG Tab PO SCH ×2 (11:27→17:13)
[2018-07-30] MEDS ORDERED: Loperamide 2 MG Tab PO PRN (11:34)
[2018-07-30] MEDS: Azithromycin 500 MG in Sodium Chloride 0.9% 250 ML IV SCH (14:02)
[2018-07-30] MEDS: Levofloxacin/Dextrose 5%-Water 750 MG in Premix Bag 1 BAG IV SCH (16:06)
--- NOTE | 2018-07-31 01:05 | PCM.PN ---
- General Info Date of Service: 07/30/18 Admission Dx/Problem (Free Text): COPD and pneumonia Subjective Update: Patient doing better less shortness of breath was able to ambulate 100 m but still very anxious - Review of Systems General: Reports: No Symptoms HEENT: Reports: No Symptoms Pulmonary: Reports: Shortness of Breath Cardiovascular: Reports: No Symptoms Gastrointestinal: Reports: No Symptoms Genitourinary: Reports: No Symptoms Musculoskeletal: Reports: No Symptoms Skin: Reports: No Symptoms Neurological: Reports: No Symptoms Psychiatric: Reports: Anxiety - Patient Data Vitals - Most Recent: Last Vital Signs Temp 98.0 F 07/30/18 17:00 Pulse 72 07/30/18 17:00 Resp 16 07/30/18 17:00 BP 138/82 07/30/18 17:00 Pulse Ox 97 07/30/18 17:00 Weight - Most Recent: 126 lb 12.817 oz I&O - Last 24 Hours: Intake & Output 07/30/18 07/30/18 07/31/18 14:59 22:59 06:59 Intake Total 1090 640 Output Total 75 200 Balance 1015 440 Imaging Impressions - Last 24 Hours: Chest x-ray stable Lab Results Last 24 Hours: Laboratory Results - last 24 hr 07/30/18 07/30/18 Range/Units 07:17 07:17 WBC 12.6 H (4.0-10.2) K/uL RBC 4.61 (4.33-5.41) M/uL Hgb 13.4 (13.1-16.8) g/dL Hct 40.7 (39.0-49.0) % MCV 88.3 (84.0-98.0) fL MCH 29.1 (28.2-33.3) pg MCHC 32.9 (31.7-36.0) g/dL RDW 14.1 (11.2-14.1) % Plt Count 244 (150-350) K/uL Neut % (Auto) 93.7 H (45.0-80.0) % Lymph % (Auto) 2.6 L (10.0-50.0) % [place] % (Auto) 3.6 (2.0-14.0) % Eos % (Auto) 0.0 (0.0-5.0) % Baso % (Auto) 0.1 (0.0-2.0) % Neut # (Auto) 11.84 H (1.40-7.00) K/uL Lymph # (Auto) 0.33 L (0.50-3.50) K/uL [place] # (Auto) 0.45 (0.00-1.00) K/uL Eos # (Auto) 0.00 (0.00-0.50) K/uL Baso # (Auto) 0.01 (0.00-0.20) K/uL Sodium 139 (136-145) mmol/L Potassium 4.3 (3.5-5.1) mmol/L Chloride 102 (98-107) mmol/L Carbon Dioxide 30.6 (21.0-32.0) mmol/L BUN 20 H (7-18) mg/dL Creatinine 0.70 (0.51-1.17) mg/dL Est Cr Clr Drug Dosing 73.04 mL/min Estimated GFR (MDRD) > 60 mL/min Glucose 113 H (74-106) mg/dL Calcium 8.7 (8.5-10.1) mg/dL Total Bilirubin 0.3 (0.2-1.0) mg/dL AST 22 (15-37) U/L ALT 39 (12-78) U/L Alkaline Phosphatase 53 (46-116) IU/L Total Protein 6.2 L (6.4-8.2) g/dL Albumin 2.8 L (3.4-5.0) g/dL Helio Results Last 24 Hours: Microbiology 07/27/18 13:10 Aerobic Blood Culture - Preliminary Blood - Venous - Lab Draw NO GROWTH AFTER 3 DAYS Anaerobic Blood Culture - Preliminary NO GROWTH AFTER 3 DAYS 07/27/18 12:55 Aerobic Blood Culture - Preliminary Blood - Venous NO GROWTH AFTER 3 DAYS Anaerobic Blood Culture - Preliminary NO GROWTH AFTER 3 DAYS Med Orders - Current: Current Medications Albuterol/Ipratropium (Duoneb 3.0-0.5 Mg/3 Ml) 3 ml NEB Q4H PRN PRN Reason: Dyspnea Albuterol/Ipratropium (Duoneb 3.0-0.5 Mg/3 Ml) 3 ml NEB QID [facility] Last Admin: 07/30/18 21:15 Dose: 3 ml Buspirone HCl (Buspar) 15 mg PO BID [facility] Last Admin: 07/30/18 17:13 Dose: 15 mg Enoxaparin Sodium (Lovenox) 30 mg SUBCUT DAILY [facility] Last Admin: 07/30/18 07:56 Dose: 30 mg Finasteride (Proscar) 5 mg PO DAILY [facility] Last Admin: 07/30/18 07:55 Dose: 5 mg Guaifenesin (Mucinex) 600 mg PO BID [facility] Last Admin: 07/30/18 17:13 Dose: 600 mg Levofloxacin/Dextrose 750 mg/ (Premix) 150 mls @ 100 mls/hr IV Q24H [facility] Last Admin: 07/30/18 16:06 Dose: 100 mls/hr Piperacillin Sod/Tazobactam (Sod 3.375 gm/ Sodium Chloride) 100 mls @ 200 mls/ hr IV Q6H [facility] Last Admin: 07/30/18 21:16 Dose: 200 mls/hr Azithromycin 500 mg/ Sodium (Chloride) 250 mls @ 250 mls/hr IV Q24H [facility] Last Admin: 07/30/18 14:02 Dose: 250 mls/hr Lactobacillus Rhamnosus (Culturelle) 1 cap PO BID [facility] Last Admin: 07/30/18 17:13 Dose: 1 cap Loperamide HCl (Imodium Ad) 2 mg PO Q6H PRN PRN Reason: Medications Mometasone Furoate/Formoterol Fumar (Dulera 200-5 Mcg) 2 puff IH BID [facility] Last Admin: 07/30/18 17:13 Dose: 2 puff Sertraline HCl (Zoloft) 75 mg PO DAILY [facility] Last Admin: 07/30/18 07:56 Dose: 75 mg Sodium Chloride (Saline Flush) 10 ml FLUSH ASDIRECTED PRN PRN Reason: Keep Vein Open Last Admin: 07/30/18 16:06 Dose: 10 ml Tamsulosin HCl (Flomax) 0.4 mg PO BID [facility] Last Admin: 07/30/18 17:13 Dose: 0.4 mg Tiotropium [place] (Spiriva Handihaler) 18 mcg INH DAILY [facility] Last Admin: 07/30/18 07:54 Dose: 1 cap Discontinued Medications Azithromycin 500 mg/ Sodium (Chloride) 250 mls @ 250 mls/hr IV Q24H [facility] Methylprednisolone Sodium Succinate 60 mg/ Sodium Chloride 100.48 mls @ 100 mls /hr IV QID ONE Stop: 07/28/18 18:18 Last Admin: 07/28/18 18:14 Dose: Not Given Methylprednisolone Sodium Succinate (Solu-Medrol) 125 mg IVPUSH Q6H [facility] Last Admin: 07/28/18 12:07 Dose: 125 mg Methylprednisolone Sodium Succinate (Solu-Medrol) 60 mg IVPUSH Q6H [facility] Last Admin: 07/30/18 07:50 Dose: 60 mg Sertraline HCl (Zoloft) 50 mg PO DAILY [facility] Tamsulosin HCl (Flomax) 0.8 mg PO DAILY [facility] - Exam Quality Assessment: Supplemental Oxygen General: Alert, Oriented, Cooperative HEENT: Pupils Equal, Pupils Reactive, EOMI, Mucous Membr. Moist/[place] Neck: Supple Lungs: Clear to Auscultation, Other (Prolonged expiratory phase) Cardiovascular: Regular Rate, Regular Rhythm GI/Abdominal Exam: Normal Bowel Sounds, Soft, Non-Tender, No Organomegaly, No Distention, No Abnormal Bruit, No Mass, Pelvis Stable (Male) Exam: Deferred Back Exam: Normal Inspection, Full Range of Motion Extremities: Normal Inspection, Normal Range of Motion, Non-Tender, No Pedal Edema, Normal Capillary Refill Skin: Warm, Dry, Intact Neurological: No New Focal Deficit Psy/Mental Status: Anxious - Problem List & Annotations (1) COLD, Chronic obstructive lung disease SNOMED Code(s): 72374098 Code(s): J44.9 - CHRONIC OBSTRUCTIVE PULMONARY DISEASE, UNSPECIFIED Status : Acute Priority: High Current Visit: Yes Onset Date: 07/26/14 Annotation/Comment:: Patient feeling better breathing easier still short of breath when ambulating did take a shower was anxious secondary to hypoxia. Needs oxygen all the time (2) Pneumonia SNOMED Code(s): 174764169 Code(s): J18.9 - PNEUMONIA, UNSPECIFIED ORGANISM Status: Acute Priority: High Current Visit: Yes Annotation/Comment:: We decreased his prednisone which helped him with anxiety and with shakiness I think will start him on BuSpar - Problem List Review Problem List Initiated/Reviewed/Updated: Yes - My Orders Last 24 Hours: My Active Orders 07/30/18 08:00 busPIRone [Buspar] 15 mg PO BID 07/30/18 11:34 Loperamide [Imodium AD] 2 mg PO Q6H PRN 04/01/19 05:11 Chest 2V [CR] Routine CBC WITH AUTO DIFF [HEME] Q24H - Plan Plan:: Mark to admit him and treat him with medications hopefully release him in the next couple days
[2018-07-31] MEDS: Piperacillin/Tazobactam 3.375 GM in Sodium Chloride 0.9% 100 ML IV SCH ×2 (01:25→08:16)
[2018-07-31] MEDS: Sodium Chloride 0.9% 10 ML Syringe FLUSH PRN (08:15)
[2018-07-31] MEDS: Finasteride 5 MG Tab PO SCH (08:20)
[2018-07-31] MEDS: guaiFENesin 600 MG Tab.ER PO SCH (08:20)
[2018-07-31] MEDS: Lactobacillus Rhamnosus GG (Probiotic) Cap PO SCH (08:20)
[2018-07-31] MEDS: Sertraline 50 MG Tab PO SCH (08:20)
[2018-07-31] MEDS: busPIRone 15 MG Tab PO SCH (08:21)
[2018-07-31] MEDS: Enoxaparin 30 MG/0.3 ML Syringe SUBCUT SCH (08:21)
[2018-07-31] MEDS: Tiotropium Inhaler 18 MCG Inhalation Powder Cap Kit of 5 INH SCH (08:21)
[2018-07-31] MEDS: Tamsulosin 0.4 MG Cap.ER PO SCH (08:21)
[2018-07-31] MEDS: Albuterol/Ipratropium 3.0-0.5 MG/3 ML Neb Soln NEB SCH ×2 (08:21→11:33)
[2018-07-31] MEDS: Formoterol/Mometasone 200-5 MCG 8.8 GM Inhaler IH SCH (08:21)
[2018-07-31 08:46] VITALS: BP 140/83
--- NOTE | 2018-07-31 10:33 | PCM.DCSUM1 ---
Discharge Summary - Hospital Course Diagnosis: Stroke: No - Discharge Data Discharge Date: 07/31/18 Discharge Disposition: Home, Self-Care 01 Condition: Fair - Discharge Diagnosis/Problem(s) (1) COLD, Chronic obstructive lung disease SNOMED Code(s): 80264863 ICD Code: J44.9 - CHRONIC OBSTRUCTIVE PULMONARY DISEASE, UNSPECIFIED Status : Acute Priority: High Current Visit: Yes Onset Date: 07/26/14 Problem Details: Patient doing better breathing easier we will discharge him home at this time x-ray stable we will continue him on antibiotics and tapering his prednisone (2) Pneumonia SNOMED Code(s): 308057530 ICD Code: J18.9 - PNEUMONIA, UNSPECIFIED ORGANISM Status: Acute Priority : High Current Visit: Yes Problem Details: Agree with plan of discharge as above - Patient Summary/Data Consults: Consultations 07/28/18 10:09 Consult to Physical Therapy [PT Evaluation and Treatment] [CONS] Routine - Patient Instructions Diet: Heart Healthy Diet Activity: As Tolerated, Cough & Deep Breathe Driving: Do Not Drive Driving, Other: May return to driving tomorrow Showering/Bathing: May Shower Notify Provider of: Fever - Discharge Plan *PRESCRIPTION DRUG MONITORING PROGRAM REVIEWED*: No *COPY OF PRESCRIPTION DRUG MONITORING REPORT IN PATIENT ZAIRE: No Home Medications: Home Meds Tiotropium [Spiriva HandiHaler] 1 ampule IH DAILY 06/14/14 [History] Finasteride [Proscar] 5 mg PO DAILY 04/09/16 [History] Fluticasone/Salmeterol [Advair 500-50] 1 puff INH BID 09/29/17 [History] Sertraline [Zoloft] 75 mg PO DAILY 09/29/17 [History] Tamsulosin [Flomax] 1 cap PO BID 09/29/17 [History] guaiFENesin [Mucinex] 600 mg PO BID 09/29/17 [History] Levofloxacin 1 tab PO DAILY 07/27/18 [History] Oxygen Therapy Mode: Nasal Cannula Oxygen Flow Rate (L/min): 92 Patient Handouts: Piperacillin; Tazobactam injection, Levofloxacin injection, Lactobacillus Oral formulations, Buspirone tablets, Azithromycin for infusion, Methylprednisolone Solution for Injection, Community-Acquired Pneumonia, Adult - Discharge Summary/Plan Comment DC Time >30 min.: No - General Info Functional Status: Reports: Pain Controlled - Review of Systems General: Reports: No Symptoms HEENT: Reports: No Symptoms Pulmonary: Reports: Shortness of Breath, Wheezing Cardiovascular: Reports: No Symptoms Gastrointestinal: Reports: No Symptoms Genitourinary: Reports: No Symptoms Musculoskeletal: Reports: No Symptoms Skin: Reports: No Symptoms Neurological: Reports: No Symptoms Psychiatric: Reports: No Symptoms - Patient Data Vitals - Most Recent: Last Vital Signs Temp 98.1 F 07/31/18 08:44 Pulse 90 07/31/18 08:44 Resp 20 07/31/18 08:44 BP 140/83 07/31/18 08:44 Pulse Ox 95 07/31/18 08:44 Weight - Most Recent: 126 lb 12.817 oz I&O - Last 24 hours: Intake & Output 07/30/18 07/31/18 07/31/18 22:59 06:59 14:59 Intake Total 640 200 240 Output Total 200 Balance 440 200 240 Lab Results - Last 24 hrs: Laboratory Results - last 24 hr 07/31/18 Range/Units 07:05 WBC 12.3 H (4.0-10.2) K/uL RBC 4.41 (4.33-5.41) M/uL Hgb 12.7 L (13.1-16.8) g/dL Hct 39.2 (39.0-49.0) % MCV 88.9 (84.0-98.0) fL MCH 28.8 (28.2-33.3) pg MCHC 32.4 (31.7-36.0) g/dL RDW 14.2 H (11.2-14.1) % Plt Count 203 (150-350) K/uL Neut % (Auto) 81.3 H (45.0-80.0) % Lymph % (Auto) 8.5 L (10.0-50.0) % [place] % (Auto) 9.9 (2.0-14.0) % Eos % (Auto) 0.2 (0.0-5.0) % Baso % (Auto) 0.1 (0.0-2.0) % Neut # (Auto) 10.03 H (1.40-7.00) K/uL Lymph # (Auto) 1.05 (0.50-3.50) K/uL [place] # (Auto) 1.22 H (0.00-1.00) K/uL Eos # (Auto) 0.03 (0.00-0.50) K/uL Baso # (Auto) 0.01 (0.00-0.20) K/uL JUAN PABLO Results - Last 24 hrs: Microbiology 07/27/18 13:10 Aerobic Blood Culture - Preliminary Blood - Venous - Lab Draw NO GROWTH AFTER 3 DAYS Anaerobic Blood Culture - Preliminary NO GROWTH AFTER 3 DAYS 07/27/18 12:55 Aerobic Blood Culture - Preliminary Blood - Venous NO GROWTH AFTER 3 DAYS Anaerobic Blood Culture - Preliminary NO GROWTH AFTER 3 DAYS Med Orders - Current: Current Medications Albuterol/Ipratropium (Duoneb 3.0-0.5 Mg/3 Ml) 3 ml NEB Q4H PRN PRN Reason: Dyspnea Albuterol/Ipratropium (Duoneb 3.0-0.5 Mg/3 Ml) 3 ml NEB QID [facility] Last Admin: 07/31/18 08:21 Dose: 3 ml Buspirone HCl (Buspar) 15 mg PO BID [facility] Last Admin: 07/31/18 08:21 Dose: 15 mg Enoxaparin Sodium (Lovenox) 30 mg SUBCUT DAILY [facility] Last Admin: 07/31/18 08:21 Dose: 30 mg Finasteride (Proscar) 5 mg PO DAILY [facility] Last Admin: 07/31/18 08:20 Dose: 5 mg Guaifenesin (Mucinex) 600 mg PO BID [facility] Last Admin: 07/31/18 08:20 Dose: 600 mg Levofloxacin/Dextrose 750 mg/ (Premix) 150 mls @ 100 mls/hr IV Q24H [facility] Last Admin: 07/30/18 16:06 Dose: 100 mls/hr Piperacillin Sod/Tazobactam (Sod 3.375 gm/ Sodium Chloride) 100 mls @ 200 mls/ hr IV Q6H [facility] Last Admin: 07/31/18 08:16 Dose: 200 mls/hr Azithromycin 500 mg/ Sodium (Chloride) 250 mls @ 250 mls/hr IV Q24H [facility] Last Admin: 07/30/18 14:02 Dose: 250 mls/hr Lactobacillus Rhamnosus (Culturelle) 1 cap PO BID [facility] Last Admin: 07/31/18 08:20 Dose: 1 cap Loperamide HCl (Imodium Ad) 2 mg PO Q6H PRN PRN Reason: Medications Mometasone Furoate/Formoterol Fumar (Dulera 200-5 Mcg) 2 puff IH BID [facility] Last Admin: 07/31/18 08:21 Dose: 2 puff Sertraline HCl (Zoloft) 75 mg PO DAILY [facility] Last Admin: 07/31/18 08:20 Dose: 75 mg Sodium Chloride (Saline Flush) 10 ml FLUSH ASDIRECTED PRN PRN Reason: Keep Vein Open Last Admin: 07/31/18 08:15 Dose: 10 ml Tamsulosin HCl (Flomax) 0.4 mg PO BID [facility] Last Admin: 07/31/18 08:21 Dose: 0.4 mg Tiotropium [place] (Spiriva Handihaler) 18 mcg INH DAILY [facility] Last Admin: 07/31/18 08:21 Dose: 1 cap Discontinued Medications Azithromycin 500 mg/ Sodium (Chloride) 250 mls @ 250 mls/hr IV Q24H [facility] Methylprednisolone Sodium Succinate 60 mg/ Sodium Chloride 100.48 mls @ 100 mls /hr IV QID ONE Stop: 07/28/18 18:18 Last Admin: 07/28/18 18:14 Dose: Not Given Methylprednisolone Sodium Succinate (Solu-Medrol) 125 mg IVPUSH Q6H [facility] Last Admin: 07/28/18 12:07 Dose: 125 mg Methylprednisolone Sodium Succinate (Solu-Medrol) 60 mg IVPUSH Q6H [facility] Last Admin: 07/30/18 07:50 Dose: 60 mg Sertraline HCl (Zoloft) 50 mg PO DAILY [facility] Tamsulosin HCl (Flomax) 0.8 mg PO DAILY [facility] - Exam Quality Assessment: Reports: Supplemental Oxygen General: Reports: Alert, Oriented HEENT: Reports: Pupils Equal, Pupils Reactive, EOMI, Mucous Membr. Moist/[place] Neck: Reports: Supple Lungs: Reports: Decreased Breath Sounds, Wheezing GI/Abdominal Exam: Normal Bowel Sounds, Soft, Non-Tender, No Organomegaly, No Distention, No Abnormal Bruit, No Mass, Pelvis Stable (Male) Exam: No Hernia, Normal Inspection, Normal Prostate, Circumcised Rectal (Males) Exam: Deferred Back Exam: Reports: Normal Inspection Extremities: Normal Inspection, Normal Range of Motion, Non-Tender, No Pedal Edema, Normal Capillary Refill Skin: Reports: Warm, Dry, Intact Wound/Incisions: Reports: Healing Well Neurological: Reports: No New Focal Deficit Psy/Mental Status: Reports: Alert, Normal Affect, Normal Mood
== END 2018-07-31 11:30 | disposition home or self-care (01) | DRG 190 ==
LOC: LL.CLIN 11:33 → LL.MS 11:34
PROVIDERS: ADMIT Family Medicine; ATTEND Family Medicine
DX: J44.0 Chronic obstructive pulmonary disease with (acute) lower respiratory infection (principal); J18.1 Lobar pneumonia, unspecified organism; I25.10 Atherosclerotic heart disease of native coronary artery without angina pectoris; J30.9 Allergic rhinitis, unspecified; H26.9 Unspecified cataract; H91.90 Unspecified hearing loss, unspecified ear; H54.7 Unspecified visual loss; E78.00 Pure hypercholesterolemia, unspecified; E78.5 Hyperlipidemia, unspecified; N40.0 Benign prostatic hyperplasia without lower urinary tract symptoms; M19.91 Primary osteoarthritis, unspecified site; M81.0 Age-related osteoporosis without current pathological fracture; F41.9 Anxiety disorder, unspecified; F32.9 Major depressive disorder, single episode, unspecified; M54.9 Dorsalgia, unspecified; G89.29 Other chronic pain; Z79.899 Other long term (current) drug therapy; Z87.891 Personal history of nicotine dependence; Z88.2 Allergy status to sulfonamides; Z88.8 Allergy status to other drugs, medicaments and biological substances; Z85.828 Personal history of other malignant neoplasm of skin
CPT/HCPCS: 36415; 71046; 80053; 82803; 83605; 83735; 83880; 85025; 86140; 87040; 93005; 94640; A9270-GY; J0456; J1650; J1956; J2543; J2920; J2930; J7050; J7620-GY